=== PATIENT | female | born 1960 | race American Indian/Alaskan Native ===

== ENCOUNTER 2017-08-09 02:31 | Emergency (ER) | payer BC ==
[2017-08-09 02:48] VITALS: BMI 29.2
[2017-08-09] MEDS ORDERED: RANITIDINE HCL 150 MG TABLET (FP) PO ONE (04:02)
[2017-08-09] MEDS ORDERED: ACETAMINOPHEN 325 MG TABLET (FP) PO ONE (04:02)
--- NOTE | 2017-08-09 04:04 | PDOC ---
History of Present Illness - General Chief Complaint: Pain, Acute Stated Complaint: ABD PAIN Time Seen by Provider: 08/09/17 03:05 History Source: Patient Exam Limitations: No Limitations - History of Present Illness Initial Comments: 08/09/17 04:02 The patient is a 57F with a PMH of fibromyalgia, IBS, and RA who presents to the ER with complaints of abdominal pain. The patient states that her pain has been going on for a "few weeks" but has increased in intensity tonight. She describes LUQ pain, sharp "gurgling", not associated with food, intermittent, and does not radiate. She admits to having "a couple drinks" tonight and says that the intensity of the pain is worse than what it normally is so she decided to come to the ER. Past History - Past Medical History Allergies/Adverse Reactions: Allergies Allergy/AdvReac Type Severity Reaction Status Date / Time Iagdzip-Ulm-Bhb Reductase Allergy Intermediate Hives Verified 08/09/17 02:41 Inhibitor Home Medications: Ambulatory Orders Eluxadoline [Viberzi] 75 mg PO BID 08/09/17 Etanercept [Enbrel] 50 mg SQ WEEKLY 08/09/17 Folic Acid 1 mg PO DAILY 08/09/17 Gabapentin 300 mg PO TID 08/09/17 COPD: No - Surgical History Orthopedic Surgery: Yes (rotator cuff,arthroscopy, carpal tunnel sx) - Suicide/Smoking/Psychosocial Hx Smoking History: Current every day smoker Have you smoked in the past 12 months: Yes Number of Cigarettes Smoked Daily: 8 Information on smoking cessation initiated: No 'Breaking Loose' booklet given: 06/09/14 Hx Alcohol Use: No Drug/Substance Use Hx: No Substance Use Type: Alcohol, Marijuana Hx Substance Use Treatment: No Review of Systems - Review of Systems Able to Perform ROS?: Yes Comments:: 08/09/17 04:16 GENERAL/CONSTITUTIONAL: No fever or chills. No weakness. HEAD, EYES, EARS, NOSE AND THROAT: No change in vision. No ear pain or discharge. No sore throat. CARDIOVASCULAR: No chest pain, palpitations, or lightheadedness. RESPIRATORY: No cough, wheezing, shortness of breath, or hemoptysis. GASTROINTESTINAL: Positive for abdominal pain. No nausea, vomiting, diarrhea, or constipation. GENITOURINARY: No dysuria, frequency, hematuria, or change in urination. MUSCULOSKELETAL: No joint or muscle swelling or pain. No neck or back pain. SKIN: No rash or lesions. NEUROLOGIC: No headache, numbness, tingling, weakness, loss of consciousness, or change in strength/sensation. ENDOCRINE: No increased thirst. No abnormal weight change. HEMATOLOGIC/LYMPHATIC: No anemia, easy bleeding, or history of blood clots. ALLERGIC/IMMUNOLOGIC: No hives or skin allergy. Is the patient limited [place] Citizen proficient: No *Physical Exam - Vital Signs Last Vital Signs Temp Pulse Resp BP Pulse Ox 98.6 F 75 20 126/84 99 08/09/17 02:41 08/09/17 02:41 08/09/17 02:41 08/09/17 02:41 08/09/17 02:41 - Physical Exam Comments: 08/09/17 04:19 GENERAL: Well developed, well nourished. Awake and alert. No acute distress. HEENT: Normocephalic, atraumatic. Hearing grossly normal. Moist mucous membranes. PERRLA, EOMI. No conjunctival pallor. Sclera are non-icteric. Oropharynx is clear. NECK: Supple. Full ROM. No JVD. CARDIOVASCULAR: Regular rate and rhythm. No murmurs, rubs, or gallops. PULMONARY: No evidence of respiratory distress. Lungs clear to auscultation bilaterally. No wheezing, rales or rhonchi. ABDOMINAL: Soft. Tender to deep palpation over LUQ. Non-distended. No rebound or guarding. GENITOURINARY: L sided CVA tenderness. MUSCULOSKELETAL: Normal range of motion at all joints. No bony deformities or tenderness. EXTREMITIES: No cyanosis. No clubbing. No edema. No calf tenderness. SKIN: Warm and dry. Normal capillary refill. No rashes. No jaundice. NEUROLOGICAL: Alert, awake, appropriate. Cranial nerves 2-12 intact. Normal speech. Gait is normal without ataxia. PSYCHIATRIC: Cooperative. Good eye contact. Appropriate mood and affect. ED Treatment Course - LABORATORY CBC & Chemistry Diagram: 08/09/17 04:04 08/09/17 04:04 Medical Decision Making - Medical Decision Making 08/09/17 04:31 The patient is a 57F with a PMH of fibromyalgia, RA, and IBS who presents to the ER with LUQ abdominal pain. On palpation, the patient stated that her pain radiated to her LLQ. She also had CVA tenderness. I am concerned for gastritis, diverticulitis, and/or pyelo/UTI. Labs have been ordered. 08/09/17 05:06 The patient states she is feeling much better. Will d/c with ranitidine as needed. *DC/Admit/Observation/Transfer Diagnosis at time of Disposition: Abdominal pain Qualifiers: Abdominal location: left upper quadrant Qualified Code(s): R10.12 - Left upper quadrant pain - Discharge Dispostion Disposition: HOME Condition at time of disposition: Stable Admit: No - Referrals Referrals: Mihai Hollingsworth MD [Primary Care Provider] - - Patient Instructions Printed Discharge Instructions: DI for Gastritis Additional Instructions: Please return to the ER if symptoms persist, worsen, or new symptoms arise. Please follow up with your primary care physician in 2-3 days. Please return to the ER if you have any signs or symptoms of chest pain, shortness of breath, uncontrollable fever, chills, nausea, vomiting, numbness, tingling, or weakness in any part of your body, changes in vision, or slurred speech. You can take Ranitidine (generic) which you can buy over the counter, as needed. - Post Discharge Activity
[2017-08-09] MEDS ORDERED: RANITIDINE HCL 150 MG TABLET (FP) ONE (04:08)
[2017-08-09] MEDS ORDERED: ACETAMINOPHEN 325 MG TABLET (FP) ONE (04:08)
[2017-08-09 04:23] LABS: BASO % 0.8 % (0-2.0); EOS % 1.9 % (0-4.5); HEMATOCRIT 42.8 % (32.4-45.2); HEMOGLOBIN 14.5 GM/dL (10.7-15.3); LYMPH % 45.5 % (8-40); MCH 31.5 pg (25.7-33.7); MCHC 33.8 g/dl (32.0-36.0); MEAN CELL VOLUME 93.2 fl (80-96); MEAN PLT VOLUME 9.2 fl (7.5-11.1); MONO % 8.7 % (3.8-10.2); NEUT % 43.1 % (42.8-82.8); PLATELET COUNT 215 K/MM3 (134-434); RBC 4.59 M/mm3 (3.60-5.2); RDW 13.1 % (11.6-15.6); WHITE BLOOD COUNT 7.5 K/mm3 (4.0-10.0)
[2017-08-09 04:27] LABS: URINE APPEARANCE CLEAR; URINE BILIRUBIN NEGATIVE (NEGATIVE); URINE BLOOD NEGATIVE (NEGATIVE); URINE COLOR COLORLESS; URINE GLUCOSE (UA) NEGATIVE (NEGATIVE); URINE KETONE NEGATIVE (NEGATIVE); URINE LEUK ESTERASE NEGATIVE (NEGATIVE); URINE NITRITE NEGATIVE (NEGATIVE); URINE PROTEIN NEGATIVE (NEGATIVE); URINE UROBILINOGEN NEGATIVE mg/dL (0.2-1.0)
[2017-08-09 04:47] LABS: ALBUMIN 3.8 g/dl (3.4-5.0); ANION GAP 10 (8-16); BILIRUBIN,TOTAL 0.4 mg/dL (0.2-1.0); BLOOD UREA NITROGEN 10 mg/dL (7-18); CALCIUM 8.8 mg/dL (8.5-10.1); CHLORIDE 109 mmol/L (98-107); CO2 23 mmol/L (21-32); CREATININE 0.9 mg/dL (0.55-1.02); GLUCOSE,RANDOM 96 mg/dL (74-106); POTASSIUM 3.9 mmol/L (3.5-5.1); SGOT/AST 12 U/L (15-37); SGPT/ALT 28 U/L (12-78); SODIUM 142 mmol/L (136-145); TOT PROT 7.2 g/dl (6.4-8.2)
[2017-08-09 04:49] LABS: ALK PHOS 74 U/L (45-117)
--- NOTE | 2017-08-09 04:58 | PDOC ---
Attending Attestation - Resident Resident Name: TitussheriShane - ED Attending Attestation I have performed the following: I have examined & evaluated the patient, The case was reviewed & discussed with the resident, I agree w/resident's findings & plan, Exceptions are as noted - HPI HPI: 08/09/17 04:56 57-year-old female with history of fibromyalgia, irritable bowel syndrome and rheumatoid arthritis presents with acute on chronic left upper quadrant abdominal pain. Patient reports that she has had these pains for over a year and is under evaluation by her primary care physician Dr. Mihai Hollingsworth and higher education administrator Dr. Ramirez. Patient stated that the pain occasionally worsens with certain times of foods. She denies any fevers or chills. Denies vomiting or diarrhea. Denies dysuria. Stated that she has recently had a CAT scan and an endoscopy. It is unclear what the etiology of her pain is but is still under investigation. - Physicial Exam PE: 08/09/17 04:56 GENERAL: Awake, alert, and fully oriented, in no acute distress. HEAD: No signs of trauma EYES: PERRLA, EOMI, sclera anicteric, conjunctiva clear ENT: Auricles normal inspection, hearing grossly normal, nares patent, oropharynx clear without exudates. NECK: Normal ROM, supple, no lymphadenopathy, JVD, or masses LUNGS: Breath sounds equal, clear to auscultation bilaterally. No wheezes, and no crackles HEART: Regular rate and rhythm, normal S1 and S2, no murmurs, rubs or gallops ABDOMEN: Soft, No guarding, no rebound. No masses. TTP LUQ. EXTREMITIES: Normal range of motion, no edema. No clubbing or cyanosis. No cords, erythema, or tenderness NEUROLOGICAL: Cranial nerves II through XII grossly intact. Normal speech SKIN: Warm, Dry, normal turgor, no rashes or lesions noted. - Medical Decision Making 08/09/17 04:57 Vital Signs Temp Pulse Resp BP Pulse Ox 98.6 F 75 20 126/84 99 08/09/17 02:41 08/09/17 02:41 08/09/17 02:41 08/09/17 02:41 08/09/17 02:41 The patient has acute on chronic abdominal pain. The blood work here demonstrates no acute findings. I had advised patient that we may not likely find an etiology of her pain but that we can attempt to manage her pain. I advised the patient follow-up with her private care physician and higher education administrator. The patient verbalized understanding agrees with plan.
[2017-08-09 05:19] VITALS: BP 133/74; PULSE 63; TEMP 97.8
--- NOTE | 2017-08-09 09:57 | EKG ---
Test Reason : Blood Pressure : / mmHG Vent. Rate : 063 BPM Atrial Rate : 063 BPM P-R Int : 154 ms QRS Dur : 078 ms QT Int : 446 ms P-R-T Axes : 067 054 060 degrees QTc Int : 456 ms NORMAL SINUS RHYTHM POSSIBLE ANTERIOR INFARCT , AGE UNDETERMINED ABNORMAL ECG WHEN COMPARED WITH ECG OF 10-FEB-2007 06:19, NO SIGNIFICANT CHANGE WAS FOUND Confirmed by MINNA VILLALPANDO MD ([id number]) on 08/09/2017 9:57:22 AM Referred By: Confirmed By:MINNA VILLALPANDO MD
== END 2017-08-09 05:08 | disposition home or self-care (01) ==
LOC: JER 02:31
DX: R10.12 Left upper quadrant pain (principal); M06.9 Rheumatoid arthritis, unspecified; K58.9 Irritable bowel syndrome, unspecified
CPT/HCPCS: 36415; 80053; 81003; 82550; 83690; 84484; 85025; 87086; 93005; 93010; 99282-25

== ENCOUNTER 2020-06-10 09:52 | Day surgery (SDC) | payer BC ==
[2020-06-08 11:43] VITALS: BMI 26.8
[2020-06-10] MEDS ORDERED: BUPIVACAINE HCL/PF 2.5 MG/ML - 30 ML VIAL IJ ONE (12:04)
[2020-06-10] MEDS ORDERED: PROPOFOL 20 ML ONE (13:16)
[2020-06-10] MEDS ORDERED: MIDAZOLAM HCL 2 MG/2 ML SINGLE DOSE VIAL ONE (13:16)
[2020-06-10] MEDS ORDERED: LIDOCAINE HCL/PF 2% SDV 5ML VIAL ONE (13:16)
[2020-06-10] MEDS ORDERED: ONDANSETRON 4 MG/2 ML VIAL ONE ×2 (13:16→15:15)
[2020-06-10] MEDS ORDERED: DEXAMETHASONE SOD PHOSPHATE 4 MG/1 ML VIAL ONE (13:16)
[2020-06-10] MEDS ORDERED: ceFAZolin SODIUM 1 GM VIAL ONE (13:46)
[2020-06-10] MEDS ORDERED: KETOROLAC TROMETHAMINE 30 MG/1 ML VIAL ONE (13:52)
[2020-06-10] MEDS ORDERED: EPHEDRINE SULFATE/0.9% NACL/PF 50 MG/10 ML SYRINGE NR ONE (13:54)
[2020-06-10] MEDS ORDERED: oxyCODONE HCL 5 MG TABLET PO PRN ×2 (14:08)
[2020-06-10] MEDS ORDERED: BUPIVACAINE HCL/PF 0.25% (2.5MG/ML) 10 ML VIAL IM ONE (14:08)
[2020-06-10] MEDS ORDERED: ONDANSETRON 4 MG/2 ML VIAL IVPUSH PRN (14:08)
[2020-06-10] MEDS ORDERED: LACTATED RINGERS SOLUTION 1,000 ML IV SCH (14:15)
[2020-06-10 14:41] VITALS: TEMP 97.8
[2020-06-10] MEDS ORDERED: ONDANSETRON 4 MG/2 ML VIAL IVPUSH ONE (15:15)
[2020-06-10 16:55] VITALS: BP 120/59; PULSE 48
== END 2020-06-10 16:05 | disposition home or self-care (01) ==
LOC: FASU 09:52
PROVIDERS: ATTEND Orthopaedic Surgery
PROC: 0SBD4ZZ Excision of Left Knee Joint, Percutaneous Endoscopic Approach (ICD-10-PCS; 2020-06-10)
PROC: 0SBD4ZZ Excision of Left Knee Joint, Percutaneous Endoscopic Approach (ICD-10-PCS; 2020-06-10)
PROC: 0SBD4ZZ Excision of Left Knee Joint, Percutaneous Endoscopic Approach (ICD-10-PCS; principal; 2020-06-10 13:54)
DX: S83.242A Other tear of medial meniscus, current injury, left knee, initial encounter (principal); S83.282A Other tear of lateral meniscus, current injury, left knee, initial encounter; S83.8X2A Sprain of other specified parts of left knee, initial encounter; M65.862 Other synovitis and tenosynovitis, left lower leg; X58.XXXA Exposure to other specified factors, initial encounter; Y93.9 Activity, unspecified; Y92.9 Unspecified place or not applicable
CPT/HCPCS: 88304-TC; 94760

== ENCOUNTER 2022-04-16 15:38 | Observation (INO) | payer BC, OTHER ==
[2022-04-16 16:41] VITALS: BMI 24.0
[2022-04-16 18:29] LABS: BASO % 0.7 % (0-2.0); EOS % 0.5 % (0-4.5); HEMATOCRIT 42.8 % (32.4-45.2); HEMOGLOBIN 14.2 GM/dL (10.7-15.3); LYMPH % 35.4 % (8-40); MCH 31.5 pg (25.7-33.7); MCHC 33.3 g/dl (32.0-36.0); MEAN CELL VOLUME 94.8 fl (80-96); MEAN PLT VOLUME 9.5 fl (7.5-11.1); MONO % 8.4 % (3.8-10.2); PLATELET COUNT 272 10^3/uL (134-434); RBC 4.51 M/mm3 (3.60-5.2); RDW 13.1 % (11.6-15.6); WHITE BLOOD COUNT 7.1 K/mm3 (4.0-10.0)
[2022-04-16 18:50] LABS: CALCIUM 9.8 mg/dL (8.5-10.1)
[2022-04-16 18:51] LABS: BLOOD UREA NITROGEN 12.7 mg/dL (7-18); MAGNESIUM 2.1 mg/dL (1.8-2.4)
[2022-04-16 18:54] LABS: CREATININE 0.7 mg/dL (0.55-1.3)
[2022-04-16 18:55] LABS: BILIRUBIN,TOTAL 0.4 mg/dL (0.2-1)
[2022-04-16 18:56] LABS: TOT PROT 7.7 g/dl (6.4-8.2)
[2022-04-16] MEDS ORDERED: ACETAMINOPHEN 325 MG TABLET (FP) PO PRN (23:18)
[2022-04-16] MEDS ORDERED: MECLIZINE HCL 25 MG TABLET (FP) PO PRN (23:18)
[2022-04-16] MEDS ORDERED: SODIUM CHLORIDE 1,000 ML IV SCH (23:30)
[2022-04-17 08:42] LABS: BASO % 0.9 % (0-2.0); EOS % 0.9 % (0-4.5); HEMATOCRIT 41.6 % (32.4-45.2); HEMOGLOBIN 13.9 GM/dL (10.7-15.3); LYMPH % 39.4 % (8-40); MCH 31.2 pg (25.7-33.7); MCHC 33.4 g/dl (32.0-36.0); MEAN CELL VOLUME 93.3 fl (80-96); MONO % 10.1 % (3.8-10.2); NEUT % 48.7 % (42.8-82.8); PLATELET COUNT 272 10^3/uL (134-434); RBC 4.46 M/mm3 (3.60-5.2); WHITE BLOOD COUNT 5.3 K/mm3 (4.0-10.0)
[2022-04-17 09:05] LABS: CALCIUM 9.4 mg/dL (8.5-10.1)
[2022-04-17 09:06] LABS: ALBUMIN 3.6 g/dl (3.4-5.0); BLOOD UREA NITROGEN 9.1 mg/dL (7-18)
[2022-04-17 09:09] LABS: CREATININE 0.7 mg/dL (0.55-1.3)
[2022-04-17 09:10] LABS: BILIRUBIN,TOTAL 0.6 mg/dL (0.2-1)
[2022-04-17 09:11] LABS: TOT PROT 6.8 g/dl (6.4-8.2)
[2022-04-17] MEDS ORDERED: ASPIRIN 81 MG CHEWABLE TABLETS PO SCH (10:00)
[2022-04-17 11:39] VITALS: BP 118/70; PULSE 50; RESP 16; TEMP 98.3
== END 2022-04-17 13:19 | disposition home or self-care (01) ==
LOC: JER 15:38 → INTOOBSV 20:31 → JERBED 20:31 → J4W 23:29
PROVIDERS: ADMIT Family Medicine; ATTEND Family Medicine
PROC: 3E0337Z Introduction of Electrolytic and Water Balance Substance into Peripheral Vein, Percutaneous Approach (ICD-10-PCS; principal; 2022-04-16)
DX: R42 Dizziness and giddiness (principal); M06.9 Rheumatoid arthritis, unspecified; F17.210 Nicotine dependence, cigarettes, uncomplicated; J44.9 Chronic obstructive pulmonary disease, unspecified; M79.7 Fibromyalgia; K58.9 Irritable bowel syndrome, unspecified; Z96.651 Presence of right artificial knee joint; G56.00 Carpal tunnel syndrome, unspecified upper limb; Z88.8 Allergy status to other drugs, medicaments and biological substances
CPT/HCPCS: 36415; 70450-TC; 70496-TC; 70498-TC; 71045-TC-FY; 80053; 83735; 84484; 85025; 93005; 93010; 93880-TC; 99285-25; C9803-CS; G0378; U0003; U0005